=== PATIENT | female | born 1995 | race Caucasian/White ===

== ENCOUNTER 2017-09-21 10:32 | Emergency (ER) | payer OTHER ==
[~2017-09-21] VITALS: Ht 154.9 cm; Wt 42.7 kg
[2017-09-21 10:33] VITALS: BP 126/77; PULSE 68; RESP 16; TEMP 98.2; O2SAT 96
[2017-09-21 11:39] LABS: AUTOMATED NEUTROPHIL # 7.2 TH/MM3 (1.8-7.7); BASOPHIL # 0.1 TH/MM3 (0-0.2); BASOPHIL % 0.6 % (0.0-2.0); EOSINOPHIL % 0.4 % (0.0-4.0); HEMATOCRIT 41.6 % (35.0-46.0); HEMOGLOBIN 14.2 GM/DL (11.6-15.3); LYMPH % 15.7 % (9.0-44.0); LYMPHOCYTE # 1.5 TH/MM3 (1.0-4.8); MEAN CELL VOLUME 87.7 FL (80.0-100.0); MEAN CORPUSCULAR HEMOGLOBIN 29.9 PG (27.0-34.0); MEAN CORPUSCULAR HGB CONC 34.1 % (32.0-36.0); MEAN PLATELET VOLUME 9.2 FL (7.0-11.0); MONO % 5.3 % (0.0-8.0); MONOCYTE # 0.5 TH/MM3 (0-0.9); PLATELET COUNT 280 TH/MM3 (150-450); RED BLOOD COUNT 4.74 MIL/MM3 (4.00-5.30); WHITE BLOOD COUNT 9.3 TH/MM3 (4.0-11.0)
[2017-09-21 12:15] LABS: BICARBONATE 24.3 MEQ/L (21.0-32.0); BLOOD UREA NITROGEN 5 MG/DL (7-18); CALCIUM 9.6 MG/DL (8.5-10.1); CHLORIDE 103 MEQ/L (98-107); CREATININE 0.61 MG/DL (0.50-1.00); GLOMERULAR FILTRATION RATE 125 ML/MIN (>89); GLUCOSE,RANDOM 85 MG/DL (74-106); SODIUM (NA) 137 MEQ/L (136-145)
[2017-09-21 12:18] VITALS: BP 126/68; PULSE 62; RESP 16; TEMP 98.2; O2SAT 98
--- NOTE | 2017-09-21 14:38 | PD ---
HPI Chief Complaint: Depression Time Seen by Provider: 14:36 Travel History International Travel<30 days: No Contact w/Intl Traveler<30days: No Traveled to known affect area: No History of Present Illness HPI 22-year-old female presents emergency department with reports of recent narcotic abuse, requesting detox, as well as suicidal ideation. She denies any medical complaints that she states she has not used in 2 days, and is through the "worst of it" in terms of detox. She takes no medications. She denies , is currently menstruating. She denies any allergies to medications. [facility] Past Medical History Medical History: Denies Significant Hx Tetanus Vaccination: Unknown Influenza Vaccination: No ?: Not LMP: 09/18/2017 : 0 Past Surgical History Other Surgery: Yes ( benign mass removed from L breast) Social History Alcohol Use: No Tobacco Use: Yes (1 ppd cigarettes) Substance Use: Yes (Oxycodone 30 mg 2-4/day; Xanax 2mg bars 1-4 approx. 2-3x week) Allergies-Medications (Allergen,Severity, Reaction): Coded Allergies: No Known Allergies (Unverified , 09/21/17) Review of Systems Except as stated in HPI: all other systems reviewed are Neg General / Constitutional: No: Fever Eyes: No: Visual changes HENT: No: Headaches Cardiovascular: No: Chest Pain or Discomfort Respiratory: No: Shortness of Breath Gastrointestinal: No: Abdominal Pain Genitourinary: No: Dysuria Musculoskeletal: No: Pain Skin: No Rash Neurologic: No: Weakness Psychiatric: Positive: Depression, Suicidal Ideations, Substance Abuse Endocrine: No: Polydipsia Hematologic/Lymphatic: No: Easy Bruising Physical Exam Narrative GENERAL: Patient is in no acute distress SKIN: Warm and dry. Normal color. Normal turgor. No signs of cellulitis. HEAD: Atraumatic. Normocephalic. EYES: Pupils equal and round. No scleral icterus. No injection or drainage. ENT: No nasal bleeding or discharge. Mucous membranes pink and moist. Pharynx is clear. Airways patent. NECK: Trachea midline. Supple and nontender. CARDIOVASCULAR: Regular rate and rhythm. RESPIRATORY: No accessory muscle use. Clear to auscultation. Breath sounds equal bilaterally. MUSCULOSKELETAL: Extremities without clubbing, cyanosis, or edema. No obvious deformities. NEUROLOGICAL: Awake and alert. No obvious cranial nerve deficits. Motor grossly within normal limits. Five out of 5 muscle strength in the arms and legs. Normal speech. PSYCHIATRIC: Appropriate mood and affect; insight and judgment normal. Data Data Last Documented VS Vital Signs Date Time Temp Pulse Resp B/P (MAP) Pulse Ox O2 Delivery O2 Flow Rate FiO2 09/21/17 15:05 56 20 114/65 (81) Room Air 09/21/17 12:18 98.2 98 Orders Orders Complete Blood Count With Diff (09/21/17 11:05) Thyroid Stimulating Hormone (09/21/17 11:05) Basic Metabolic Panel (Bmp) (09/21/17 11:05) Ed Urine Pregnancytest Poc (09/21/17 11:05) Psych Screen (09/21/17 11:05) Drug Screen, Random Urine (09/21/17 11:05) Alcohol (Ethanol) (09/21/17 11:05) Diet Regular Basic (09/21/17 Lunch) Labs Laboratory Tests Test 09/21/17 11:10 09/21/17 11:19 Blood Urea Nitrogen 5 MG/DL Creatinine 0.61 MG/DL Random Glucose 85 MG/DL Calcium Level 9.6 MG/DL Sodium Level 137 MEQ/L Potassium Level 3.8 MEQ/L Chloride Level 103 MEQ/L Carbon Dioxide Level 24.3 MEQ/L Anion Gap 10 MEQ/L Estimat Glomerular Filtration Rate 125 ML/MIN Thyroid Stimulating Hormone 3rd Gen 0.148 uIU/ML Urine Opiates Screen NEG Urine Barbiturates Screen NEG Urine Amphetamines Screen NEG Urine Benzodiazepines Screen POS Urine Cocaine Screen NEG Urine Cannabinoids Screen POS Ethyl Alcohol Level LESS THAN 3 MG/DL White Blood Count 9.3 TH/MM3 Red Blood Count 4.74 MIL/MM3 Hemoglobin 14.2 GM/DL Hematocrit 41.6 % Mean Corpuscular Volume 87.7 FL Mean Corpuscular Hemoglobin 29.9 PG Mean Corpuscular Hemoglobin Concent 34.1 % Red Cell Distribution Width 15.0 % Platelet Count 280 TH/MM3 Mean Platelet Volume 9.2 FL Neutrophils (%) (Auto) 78.0 % Lymphocytes (%) (Auto) 15.7 % Monocytes (%) (Auto) 5.3 % Eosinophils (%) (Auto) 0.4 % Basophils (%) (Auto) 0.6 % Neutrophils # (Auto) 7.2 TH/MM3 Lymphocytes # (Auto) 1.5 TH/MM3 Monocytes # (Auto) 0.5 TH/MM3 Eosinophils # (Auto) 0.0 TH/MM3 Basophils # (Auto) 0.1 TH/MM3 CBC Comment DIFF FINAL Differential Comment MDM Medical Decision Making Medical Screen Exam Complete: Yes Emergency Medical Condition: Yes Differential Diagnosis Polysubstance abuse. Depression. Suicidal ideation. Medical clearance for psychiatric evaluation. Narrative Course Patient appears medically stable at time of exam Psychiatric labs ordered as per psychiatric protocol. Patient is medically cleared for psychiatric evaluation. 1620 hrs. patient is requesting that she be discharged so she can follow-up in [facility]. She denies suicidal ideation at this time. I feel that she is safe for discharge. Diagnosis Primary Impression: Substance abuse Referrals: [facility] (Out patient) Patient Instructions: General Instructions Additional Instructions: patient is requesting that she be discharged so she can follow-up in [facility]. She denies suicidal ideation at this time. I feel that she is safe for discharge. Med/Other Pt SpecificInfo: No Meds Exist/No RX given Disposition: 01 DISCHARGE HOME Condition: Stable Jared Kinsey Sep 21, 2017 14:38
[2017-09-21 15:05] VITALS: BP 114/65; PULSE 56; RESP 20
== END 2017-09-21 18:26 | disposition home or self-care (01) ==
LOC: NEPJ 10:32
DX: F19.10 Other psychoactive substance abuse, uncomplicated (principal); F17.200 Nicotine dependence, unspecified, uncomplicated
CPT/HCPCS: 80048; 80307; 84443; 84703; 85025; 99283